=== PATIENT | female | born 1990 | race Caucasian/White ===

== ENCOUNTER 2017-01-21 13:27 | Emergency (ER) | payer OTHER ==
--- NOTE | 2017-01-21 13:47 | EDM.PDOC ---
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 She states that she seen Dr. Hull recently and has had 2 ultrasounds in which there has been no heartbeat and no evidence of growth or change. She was told that this will result in a miscarriage and that she should expect to start bleeding at some point. The bleeding did start today. She also was told that she is A- blood type and will need a RhoGAM shot. States the bleeding was initially heavy and she passed some clots. 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 No abdominal pain. No additional complaint. No dizziness or lightheadedness. 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: Psychiatric History: Reports: PTSD - Past Surgical History HEENT Surgical History: Reports: Oral Surgery, Other (See Below) Other HEENT Surgeries/Procedures: euchstacian tubes Social & Family History - Tobacco Use Smoking Status *Q: Never Smoker - Recreational Drug Use Recreational Drug Use: No ED ROS GENERAL - Review of Systems Review Of Systems: See Below Constitutional: Denies: Fever Respiratory: Reports: No Symptoms Cardiovascular: Reports: No Symptoms GI/Abdominal: Denies: Abdominal Pain Skin: Reports: No Symptoms Neurological: Reports: No Symptoms Hematologic/Lymphatic: Reports: No Symptoms ED EXAM - Physical Exam Exam: See Below Exam Limited By: No Limitations General Appearance: Alert, WD/WN, No Apparent Distress Eye Exam: Bilateral Eye: Normal Inspection Ears: Normal External Exam Nose: Normal Inspection Throat/Mouth: Normal Inspection, Normal Voice Head: Atraumatic, Normocephalic Neck: Normal Inspection, Supple, Non-Tender, Full Range of Motion Respiratory/Chest: No Respiratory Distress, Lungs Clear, Normal Breath Sounds Cardiovascular: Normal Peripheral Pulses, Regular Rate, Rhythm, No Murmur GI/Abdominal Exam: Soft, Non-Tender, No Distention. No: Rebound Extremities: Normal Inspection Neurological: Alert, Oriented, Normal Cognition, No Motor/Sensory Deficits Psychiatric: Normal Affect, Normal Mood Skin Exam: Warm, Dry, Intact, Normal Color, No Rash Course - Vital Signs Last Recorded V/S: Last Vital Signs Temp 36.1 C 01/21/17 13:32 Pulse 99 01/21/17 13:32 Resp 16 01/21/17 13:32 BP 158/107 H 01/21/17 13:32 Pulse Ox 100 01/21/17 13:32 - Orders/Labs/Meds Orders: Active Orders 24 hr Category Date Time Status PATIENT RETYPE [BBK] Stat Lab 01/21/17 14:55 Results RH IMMUNE GLOBULIN [BBK] Stat Lab 01/21/17 14:55 Results RHOGAM, [RHIG WORKUP, ] [BBK] Stat Lab 01/21/17 14:55 Results Labs: Laboratory Tests 01/21/17 Range/Units 14:55 Blood Type A NEGATIVE Gel Antibody Screen Negative Rhogam Indicated Yes - Re-Assessments/Exams Free Text/Narrative Re-Assessment/Exam: 01/21/17 17:30 RhoGAM given. She will follow-up with OB as needed. Discussed return precautions for heavy bleeding. Departure - Departure Time of Disposition: 14:27 Disposition: Home, Self-Care 01 Clinical Impression: Threatened - Discharge Information Instructions: Threatened Miscarriage, [id number] Referrals: Ly Landa MD [Primary Care Provider] - Forms: ED Department Discharge Additional Instructions: Follow up with Dr. Landa as needed. Return to the closest Emergency Department if you have extremely heavy bleeding, severe abdominal pain, or other concerning symptoms. - My Orders Last 24 Hours: My Active Orders 01/21/17 14:55 PATIENT RETYPE [BBK] Stat RH IMMUNE GLOBULIN [BBK] Stat RHOGAM, [RHIG WORKUP, ] [BBK] Stat - Assessment/Plan Last 24 Hours: My Active Orders 01/21/17 14:55 PATIENT RETYPE [BBK] Stat RH IMMUNE GLOBULIN [BBK] Stat RHOGAM, [RHIG WORKUP, ] [BBK] Stat
== END 2017-01-21 16:09 | disposition home or self-care (01) ==
LOC: JD.ED 13:27
DX: O20.0 Threatened abortion (principal); Z88.1 Allergy status to other antibiotic agents; Z88.0 Allergy status to penicillin; Z79.899 Other long term (current) drug therapy
CPT/HCPCS: 36415; 86850; 86900; 86901; 96372; 99284; J2790; 99282

== ENCOUNTER 2020-11-05 03:51 | Emergency (ER) | payer OTHER, SELFPAY ==
[2020-11-05] MEDS ORDERED: OLANZapine 5 MG Tab PO ONE (04:39)
--- NOTE | 2020-11-05 04:45 | EDM.PDOC ---
<Thad Zhang Acosta - Last Filed: 11/05/20 06:37> ED HPI GENERAL MEDICAL PROBLEM - General Chief Complaint: General Stated Complaint: GENERAL Time Seen by Provider: 11/05/20 04:14 Source of Information: Reports: Patient, RN Notes Reviewed - History of Present Illness INITIAL COMMENTS - FREE TEXT/NARRATIVE: 30 yr female has apparently driven herself here from [place]. Unable to explain why she is here. When asked why she is here she just gets a confused look on her face and than starts talking about something completely unrelated. Talks about going to college here at [employer] some yrs ago, talks about her parents, her brother but none of that helps explain why she is here or what type of help she is looking for. Zyprexa comes up on her med list but she states she is currently not taking it. She states she was once on 40 mg daily and all it did was "make me sleep" She denies auditory or visual hallucinations. She knows where she is at and can give the correct date. - Related Data Allergies Allergy/AdvReac Type Severity Reaction Status Date / Time amoxicillin Allergy Anaphylactic Verified 11/05/20 04:15 Shock Penicillins Allergy Anaphylactic Verified 11/05/20 04:15 Shock Home Meds: Home Meds OLANZapine [ZyPREXA] 2.5 mg PO Q4H PRN 01/21/17 [History] OLANZapine [ZyPREXA] 7.5 mg PO BEDTIME 01/21/17 [History] Pnv No.95/Ferrous Fum/Folic AC [ Tablet] 1 each PO DAILY 01/21/17 [History] Past Medical History [employer] History: Reports: Psychiatric History: Reports: PTSD - Past Surgical History HEENT Surgical History: Reports: Oral Surgery, Other (See Below) Other HEENT Surgeries/Procedures: euchstacian tubes Social & Family History - Tobacco Use Tobacco Use Status *Q: Never Tobacco User ED ROS GENERAL - Review of Systems Review Of Systems: See Below Constitutional: Reports: No Symptoms HEENT: Reports: No Symptoms Respiratory: Denies: Shortness of Breath Cardiovascular: Denies: Chest Pain GI/Abdominal: Denies: Abdominal Pain, Vomiting Musculoskeletal: Reports: No Symptoms Skin: Reports: No Symptoms Neurological: Reports: No Symptoms Psychiatric: Reports: Confusion. Denies: Hallucinations ED EXAM, GENERAL - Physical Exam Exam: See Below General Appearance: Alert, No Apparent Distress Throat/Mouth: Normal Inspection Head: Atraumatic Neck: Supple Respiratory/Chest: No Respiratory Distress, Lungs Clear, Normal Breath Sounds Cardiovascular: Regular Rate, Rhythm GI/Abdominal: Non-Tender Extremities: Normal Inspection Neurological: Alert, Oriented, No Motor/Sensory Deficits, Other Psychiatric: Normal Affect. No: Anxious Skin Exam: Warm, Dry Course - Re-Assessments/Exams Free Text/Narrative Re-Assessment/Exam: 11/05/20 05:55: urine drug screen is back and that is negative, etoh also neg. Will try contact parents or other family member for more information if possible. 11/05/20 06:21. We have been able to reach her mother, Karyn, cell [phone], who states she has been having mental health issues for about the last 10 yrs. She was on zyprexa for many yrs up to 40 mg daily and doing kind of OK. She stopped taking the zyprexa late August, ended up being admitted to [facility] September 14 about 6 weeks ago for a 10 day admission. Discharged home on Haldol 5 mg BID, Cogentin 1 mg bid. Mother thinks she stopped taking her meds again probably in the past week. Started talking and acting "differently" the last 2 or 3 days. When her mother went to check on her last evening her car was gone. Of note she lives in an apartment by herself in [place]. Her parents live in a separate home also in [place]. She had been talking about wanting to go to [place] to "see her brother and buy a flute". She did not show up at her brother's residence last evening. Her parents had no idea where she was, patient had made no contact with them. Her mother states that she does not like to use her cell phone even when medicated, will only us a land line. She presented to our ED about 4 AM this morning but not able to clearly state why she was here. As noted she does not give any indication of suicidal thoughts or self harm at this time. Denies current Hallucinations. Drug screen is neg., etoh 0.0. Other labs normal. Will check preg test. Covid screen neg. 11/05/20 06:34 Will have this information faxed to [facility] to check recomendation for transfer, repeat psych admission vs go home with parents under close supervision. Departure - Departure Disposition: Home, Self-Care 01 Clinical Impression: Schizophrenia Qualifiers: Schizophrenia type: other Qualified Code(s): F20.89 - Other schizophrenia; F20.8 - Other schizophrenia - Discharge Information Referrals: PCP,Not In Area [Primary Care Provider] - Forms: ED Department Discharge Sepsis Event Note (ED) - Evaluation Sepsis Screening Result: No Definite Risk <Fortunato Jerez - Last Filed: 11/05/20 12:10> Course - Vital Signs Last Recorded V/S: Last Vital Signs Temp 97.2 F 11/05/20 04:11 Pulse 72 11/05/20 04:11 Resp 18 11/05/20 04:11 BP 131/87 11/05/20 04:11 Pulse Ox 100 11/05/20 04:11 - Orders/Labs/Meds Labs: Laboratory Tests 11/05/20 11/05/20 11/05/20 Range/Units 04:00 04:45 04:45 WBC 6.31 (3.98-10.04) K/mm3 RBC 4.84 (3.98-5.22) M/mm3 Hgb 14.7 (11.2-15.7) gm/dl Hct 42.9 (34.1-44.9) % MCV 88.6 (79.4-94.8) fl MCH 30.4 (25.6-32.2) pg MCHC 34.3 (32.2-35.5) g/dl RDW Std Deviation 39.3 (36.4-46.3) fL Plt Count 233 (182-369) K/mm3 MPV 8.4 L (9.4-12.3) fl Neut % (Auto) 64.9 (34.0-71.1) % Lymph % (Auto) 24.1 (19.3-51.7) % Brantley % (Auto) 9.4 (4.7-12.5) % Eos % (Auto) 1.1 (0.7-5.8) Baso % (Auto) 0.3 (0.1-1.2) % Neut # (Auto) 4.10 (1.56-6.13) K/mm3 Lymph # (Auto) 1.52 (1.18-3.74) K/mm3 Brantley # (Auto) 0.59 H (0.24-0.36) K/mm3 Eos # (Auto) 0.07 (0.04-0.36) K/mm3 Baso # (Auto) 0.02 (0.01-0.08) K/mm3 Sodium 140 (136-145) mEq/L Potassium 4.3 (3.5-5.1) mEq/L Chloride 105 (98-107) mEq/L Carbon Dioxide 26 (21-32) mEq/L Anion Gap 13.3 (5-15) BUN 21 H (7-18) mg/dL Creatinine 1.1 H (0.55-1.02) mg/dL Est Cr Clr Drug Dosing TNP Estimated GFR (MDRD) 58 (>60) mL/min BUN/Creatinine Ratio 19.1 H (14-18) Glucose 89 (70-99) mg/dL Calcium 8.8 (8.5-10.1) mg/dL Total Bilirubin 0.6 (0.2-1.0) mg/dL AST 12 L (15-37) U/L ALT 15 (14-59) U/L Alkaline Phosphatase 65 (46-116) U/L Total Protein 7.6 (6.4-8.2) g/dl Albumin 4.0 (3.4-5.0) g/dl Globulin 3.6 gm/dL Albumin/Globulin Ratio 1.1 (1-2) Urine Opiates Screen Negative (XRVPSO=547) Ur Buprenorphine Scrn Negative (CUTOFF=10) Ur Oxycodone Screen Negative (VFI8CQ=659) Urine Methadone Screen Negative (VMWEUA=381) Ur Propoxyphene Screen Negative (AVQGQQ=715) Ur Barbiturates Screen Negative (TRAZDG=411) Ur Tricyclics Screen Negative (QWKDTZ=622) Ur Phencyclidine Scrn Negative (CUTOFF=25) Ur Amphetamine Screen Negative (CDJVHF=730) U Methamphetamines Scrn Negative (XZGSIO=019) U Benzodiazepines Scrn Negative (WLNGZK=223) U Cocaine Metab Screen Negative (ZXJTEG=639) U Marijuana (THC) Screen Negative (CUTOFF=50) Ethyl Alcohol 0.00 (0.00) gm% SARS-CoV-2 RNA (KIA) (NEGATIVE) 11/05/20 Range/Units 05:00 WBC (3.98-10.04) K/mm3 RBC (3.98-5.22) M/mm3 Hgb (11.2-15.7) gm/dl Hct (34.1-44.9) % MCV (79.4-94.8) fl MCH (25.6-32.2) pg MCHC (32.2-35.5) g/dl RDW Std Deviation (36.4-46.3) fL Plt Count (182-369) K/mm3 MPV (9.4-12.3) fl Neut % (Auto) (34.0-71.1) % Lymph % (Auto) (19.3-51.7) % Brantley % (Auto) (4.7-12.5) % Eos % (Auto) (0.7-5.8) Baso % (Auto) (0.1-1.2) % Neut # (Auto) (1.56-6.13) K/mm3 Lymph # (Auto) (1.18-3.74) K/mm3 Brantley # (Auto) (0.24-0.36) K/mm3 Eos # (Auto) (0.04-0.36) K/mm3 Baso # (Auto) (0.01-0.08) K/mm3 Sodium (136-145) mEq/L Potassium (3.5-5.1) mEq/L Chloride (98-107) mEq/L Carbon Dioxide (21-32) mEq/L Anion Gap (5-15) BUN (7-18) mg/dL Creatinine (0.55-1.02) mg/dL Est Cr Clr Drug Dosing Estimated GFR (MDRD) (>60) mL/min BUN/Creatinine Ratio (14-18) Glucose (70-99) mg/dL Calcium (8.5-10.1) mg/dL Total Bilirubin (0.2-1.0) mg/dL AST (15-37) U/L ALT (14-59) U/L Alkaline Phosphatase (46-116) U/L Total Protein (6.4-8.2) g/dl Albumin (3.4-5.0) g/dl Globulin gm/dL Albumin/Globulin Ratio (1-2) Urine Opiates Screen (XVCXPT=092) Ur Buprenorphine Scrn (CUTOFF=10) Ur Oxycodone Screen (YVX8QX=804) Urine Methadone Screen (NZFKPB=738) Ur Propoxyphene Screen (OOIKIB=863) Ur Barbiturates Screen (QHFXON=958) Ur Tricyclics Screen (PBVMTU=373) Ur Phencyclidine Scrn (CUTOFF=25) Ur Amphetamine Screen (RBGGWF=042) U Methamphetamines Scrn (BLUTHW=630) U Benzodiazepines Scrn (LQTAQH=643) U Cocaine Metab Screen (YFBNIV=562) U Marijuana (THC) Screen (CUTOFF=50) Ethyl Alcohol (0.00) gm% SARS-CoV-2 RNA (KIA) Negative (NEGATIVE) Meds: Medications Discontinued Medications Generic Name Dose Route Start Last Admin Trade Name Freq PRN Reason Stop Dose Admin Lorazepam 1 mg 11/05/20 10:47 11/05/20 11:34 Lorazepam 1 Mg Tab PO 11/05/20 10:48 1 mg ONETIME ONE Administration Olanzapine 5 mg 11/05/20 04:39 11/05/20 04:55 Olanzapine 5 Mg Tab PO 11/05/20 04:40 5 mg ONETIME ONE Administration - Re-Assessments/Exams Free Text/Narrative Re-Assessment/Exam: 11/05/20 12:[address] Zhang. She was a little anxious so I gave her some ativan 1mg PO. [facility] called and they accepted her. We are working on transportation. Departure - Departure Time of Disposition: 12:10 Condition: Good Sepsis Event Note (ED) - Focused Exam Vital Signs: Vital Signs Temp Pulse Resp BP Pulse Ox 11/05/20 04:11 97.2 F 72 18 131/87 100
[2020-11-05] MEDS ORDERED: LORazepam 1 MG Tab PO ONE (10:47)
== END 2020-11-05 13:30 | disposition home or self-care (01) ==
LOC: JD.ED 03:51
DX: F20.89 Other schizophrenia (principal); Z88.0 Allergy status to penicillin; Z20.822 Contact with and (suspected) exposure to COVID-19
CPT/HCPCS: 36415; 80053; 80306; 80307; 85025; 87635; 99284; A9270; U0002